=== PATIENT | female | born 1960 | race Two or more races ===

== ENCOUNTER 2022-03-08 12:10 | Emergency (ER) | payer OTHER ==
[~2022-03-08] VITALS: Ht 172.7 cm; Wt 95.3 kg
[~2022-03-08 12:10] MED LIST: SYNTHROID50 MCG
[2022-03-08] MEDS ORDERED: TOPROL XL200 MG PO (12:51)
[2022-03-08] MEDS ORDERED: LIPITOR20 MG PO (12:51)
[2022-03-08] MEDS ORDERED: SYNTHROID88 MCG PO (12:51)
[2022-03-08] MEDS ORDERED: GLUMETZA500 MG PO (12:51)
[2022-03-08] MEDS ORDERED: COZAAR50 MG PO (12:52)
== END 2022-03-08 14:59 | disposition home or self-care (01) ==
LOC: ER 12:10 → EMR PED 12:19 → ER 14:59
DX: M25.561 Pain in right knee (principal); E11.9 Type 2 diabetes mellitus without complications; Z79.84 Long term (current) use of oral hypoglycemic drugs; I10 Essential (primary) hypertension

== ENCOUNTER 2022-12-02 10:30 | Emergency (ER) | payer OTHER ==
[~2022-12-02] VITALS: Ht 172.7 cm; Wt 102.1 kg
[~2022-12-02 10:30] MED LIST changes: +COZAAR50 MG PO; +GLUMETZA500 MG PO; +LIPITOR20 MG PO; +SYNTHROID88 MCG PO; +TOPROL XL200 MG PO
[2022-12-02] MEDS ORDERED: IRBESARTAN-HCT1 EACH (10:56)
[2022-12-02] MEDS ORDERED: CRESTOR10 MG (10:56)
== END 2022-12-02 13:56 | disposition home or self-care (01) ==
LOC: ER 10:30
DX: S99.821A Other specified injuries of right foot, initial encounter (principal); W50.2XXA Accidental twist by another person, initial encounter; Y93.89 Activity, other specified; Y92.89 Other specified places as the place of occurrence of the external cause; Y99.8 Other external cause status; E03.8 Other specified hypothyroidism; E13.69 Other specified diabetes mellitus with other specified complication; I10 Essential (primary) hypertension

== ENCOUNTER 2023-05-08 11:21 | Emergency (ER) | payer OTHER ==
[~2023-05-08] VITALS: Ht 170.2 cm; Wt 98.0 kg
[~2023-05-08 11:21] MED LIST changes: +CRESTOR10 MG; +IRBESARTAN-HCT1 EACH
[2023-05-08 17:55] LABS: HEMATOCRIT 36.3 % (36.0-45.00); HEMOGLOBIN 12.1 g/dL (12.0-15.00); MEAN CELL VOLUME 90.6 fL (80.00-100.00); MEAN CORPUSCULAR HEMOGLOBIN 30.3 pg (27.00-32.0); MEAN CORPUSCULAR HGB CONC 33.4 g/dl (32.0-36.0); PLATELET COUNT 212 K/uL (150-450); RED CELL DISTRIBUTION WIDTH 13.1 % (11.5-14.5)
== END 2023-05-08 19:20 | disposition home or self-care (01) ==
LOC: ER 11:21
PROVIDERS: General Practice
DX: J10.1 Influenza due to other identified influenza virus with other respiratory manifestations (principal); R53.81 Other malaise; Z20.822 Contact with and (suspected) exposure to COVID-19

== ENCOUNTER → 2023-09-14 | Emergency (ER) | payer OTHER ==
[~2023-09-14] VITALS: Ht 172.7 cm; Wt 99.8 kg
[~2023-09-14] MED LIST changes: +DOLOGESIC-DF 51 EACH PO; +ONDANSETRON ODT8 MG PO; +PEPCID40 MG PO
[2023-09-14 13:38] LABS: HEMATOCRIT 39.6 % (36.0-45.00); HEMOGLOBIN 13.4 g/dL (12.0-15.00); MEAN CELL VOLUME 91.9 fL (80.00-100.00); MEAN CORPUSCULAR HGB CONC 33.8 g/dl (32.0-36.0); PLATELET COUNT 192 K/uL (150-450); RED BLOOD COUNT 4.31 M/uL (4.00-6.00); RED CELL DISTRIBUTION WIDTH 13.1 % (11.5-14.5)
[2023-09-14 14:34] LABS: INR 0.98; PARTIAL THROMBOPLASTIN TIME 22.5 SECONDS (22.0-34.0); PROTHROMBIN TIME 10.3 SECONDS (9.0-11.5)
[2023-09-14 14:50] LABS: CALCIUM 9.2 mg/dL (8.5-10.1); CREATININE SERUM 0.83 mg/dL (0.55-1.02); GFR 69.89; POTASSIUM 3.73 mEq/L (3.5-5.1)
== END | disposition home or self-care (01) ==
LOC: ER 12:29
PROVIDERS: Emergency Medicine
DX: R53.81 Other malaise (principal); I10 Essential (primary) hypertension; E03.8 Other specified hypothyroidism; E11.9 Type 2 diabetes mellitus without complications; Z79.84 Long term (current) use of oral hypoglycemic drugs

== ENCOUNTER 2023-09-17 03:11 | Emergency (ER) | payer OTHER ==
[~2023-09-17] VITALS: Ht 172.7 cm; Wt 99.8 kg
[~2023-09-17 03:11] MED LIST changes: -DOLOGESIC-DF 51 EACH PO; -ONDANSETRON ODT8 MG PO; -PEPCID40 MG PO
[2023-09-17] MEDS ORDERED: FAMOTIDINE/PF 20 MG/2 ML VIAL IV PUSH STA (04:01)
[2023-09-17] MEDS ORDERED: PROMETHAZINE HCL 50 MG/ML AMPUL IM STA (04:02)
[2023-09-17] MEDS ORDERED: KETOROLAC TROMETHAMINE 30 MG VIAL IV STA (04:02)
[2023-09-17] MEDS ORDERED: ORPHENADRINE CITRATE 30 MG/ML AMPUL IV STA (04:03)
[2023-09-17] MEDS ORDERED: 0.9 % SODIUM CHLORIDE 1,000 ML IV ONE (04:15)
[2023-09-17 04:50] LABS: HEMOGLOBIN 13.3 g/dL (12.0-15.00); MEAN CELL VOLUME 88.1 fL (80.00-100.00); MEAN CORPUSCULAR HEMOGLOBIN 30.8 pg (27.00-32.0); MEAN CORPUSCULAR HGB CONC 34.9 g/dl (32.0-36.0); PLATELET COUNT 150 K/uL (150-450); RED BLOOD COUNT 4.31 M/uL (4.00-6.00); RED CELL DISTRIBUTION WIDTH 12.8 % (11.5-14.5)
[2023-09-17 05:08] LABS: CALCIUM 8.7 mg/dL (8.5-10.1); CREATININE SERUM 0.62 mg/dL (0.55-1.02); GFR 97.86; POTASSIUM 4.29 mEq/L (3.5-5.1)
[2023-09-17 07:20] LABS: URINE APPEARANCE Clear; URINE BILIRRUBIN Negative (NEGATIVE); URINE BLOOD Negative; URINE COLOR Yellow; URINE GLUCOSE Negative (NEGATIVE); URINE LEUKOCYTE Moderate; URINE NITRATE Negative; URINE PROTEIN 30 (NEGATIVE)
[2023-09-17 07:23] LABS: URINE BACTERIA 1888.7 uL (0.0-1933); URINE EPITHELIAL CELLS 25.6 uL (0.0-38.8); URINE RBC 10.7 uL (0.0-20.8); URINE WBC 24.1 uL (0.0-23.2)
[2023-09-17] MEDS ORDERED: ONDANSETRON ODT8 MG PO (08:30)
[2023-09-17] MEDS ORDERED: DOLOGESIC-DF 51 EACH PO (08:30)
[2023-09-17] MEDS ORDERED: PEPCID40 MG PO (08:30)
== END 2023-09-17 08:41 ==
LOC: ER 03:11
PROVIDERS: General Practice
DX: J10.1 Influenza due to other identified influenza virus with other respiratory manifestations (principal); R11.2 Nausea with vomiting, unspecified; E11.9 Type 2 diabetes mellitus without complications; I10 Essential (primary) hypertension; E86.0 Dehydration; R19.7 Diarrhea, unspecified

== ENCOUNTER 2024-05-12 09:40 | Emergency (ER) | payer OTHER ==
[~2024-05-12] VITALS: Ht 172.7 cm; Wt 101.2 kg
[~2024-05-12 09:40] MED LIST changes: +DOLOGESIC-DF 51 EACH PO; +ONDANSETRON ODT8 MG PO; +PEPCID40 MG PO
[2024-05-12] MEDS ORDERED: KETOROLAC TROMETHAMINE 30 MG VIAL IM STA (11:19)
== END 2024-05-12 12:57 | disposition home or self-care (01) ==
LOC: ER 09:41
DX: R05.8 Other specified cough (principal); M54.9 Dorsalgia, unspecified; Z20.822 Contact with and (suspected) exposure to COVID-19

== ENCOUNTER 2025-02-09 09:00 | Inpatient (IN) | payer OTHER ==
[~2025-02-09] VITALS: Ht 243.8 cm; Wt 90.7 kg
[2025-02-09] MEDS ORDERED: NEURONTIN800 MG PO (11:24)
[2025-02-09] MEDS ORDERED: MOUNJARO7.5 MG/0.5 SQ (11:24)
[2025-02-09 13:00] LABS: COVID-19 AG NEGATIVE (NEGATIVE)
[2025-02-17] MEDS ORDERED: VANCOMYCIN HCL 1,000 MG VIAL ONE ×3 (06:47→15:22)
[2025-02-17] MEDS ORDERED: METHYLPREDNISOLONE SOD SUCC 125 MG VIAL ONE (06:47)
[2025-02-17] MEDS ORDERED: METHYLPREDNISOLONE ACETATE 80 MG/ML VIAL ONE (06:50)
[2025-02-17] MEDS ORDERED: CEFAZOLIN SODIUM 1,000 MG VIAL ONE ×2 (07:04→09:47)
[2025-02-17] MEDS ORDERED: MEDROLPACK PO (07:20)
[2025-02-17] MEDS ORDERED: PERCOCET 5-3251 EACH PO (07:20)
[2025-02-17] MEDS ORDERED: ZOFRAN8 MG PO (07:21)
[2025-02-17] MEDS ORDERED: COLACE100 MG PO (07:21)
[2025-02-17] MEDS ORDERED: AMOX-CLAV 875-1 EACH PO (07:21)
[2025-02-17] MEDS ORDERED: GABAPENTIN100 M2 PO (07:21)
[2025-02-17] MEDS ORDERED: NEURONTIN800 MG PO (07:22)
[2025-02-17] MEDS ORDERED: ENALAPRILAT DIHYDRATE 1.25 MG/ML VIAL IV PRN (07:45)
[2025-02-17] MEDS ORDERED: PROMETHAZINE HCL 50 MG/ML AMPUL IM PRN (07:45)
[2025-02-17] MEDS ORDERED: 0.9 % SODIUM CHLORIDE 1,000 ML IV SCH (07:45)
[2025-02-17] MEDS ORDERED: CEFAZOLIN SODIUM 1,000 MG in 0.9 % SODIUM CHLORIDE 50 ML IV SCH (09:00)
[2025-02-17] MEDS ORDERED: MORPHINE SULFATE 4 MG/ML CARTRIDGE IV SCH (09:00)
[2025-02-17] MEDS ORDERED: DOCUSATE SODIUM 100MG CAP PO SCH (09:00)
[2025-02-17] MEDS ORDERED: TAMSULOSIN HCL 0.4 MG CAP PO SCH (09:00)
[2025-02-17] MEDS ORDERED: METHYLPREDNISOLONE SOD SUCC 125 MG VIAL IV SCH (09:00)
[2025-02-17] MEDS ORDERED: VANCOMYCIN HCL 1,000 MG VIAL IV SCH (09:00)
[2025-02-17] MEDS ORDERED: METHYLPREDNISOLONE SOD SUCC 125 MG VIAL IV ONE (09:15)
[2025-02-17] MEDS ORDERED: MORPHINE SULFATE 4 MG/ML VIAL IV ONE ×2 (10:10→10:40)
[2025-02-17 13:36] VITALS: BP 116/65; O2SAT 95
[2025-02-17 17:31] VITALS: BP 145/69; O2SAT 97
[2025-02-17] MEDS ORDERED: ACETAMINOPHEN 500 MG GEL..CAP PO SCH (20:00)
[2025-02-17] MEDS ORDERED: GABAPENTIN 800 MG TABLET PO SCH (21:00)
[2025-02-18] VITALS (8 sets, daily range): BP systolic 96–124; BP diastolic 62–76; O2SAT 91–98
[2025-02-18] MEDS ORDERED: SODIUM CHLORIDE 0.45 % 1,000 ML IV SCH
[2025-02-18] MEDS ORDERED: LEVOTHYROXINE SODIUM 88 MCG TABLET PO SCH (06:00)
[2025-02-18] MEDS ORDERED: VANCOMYCIN HCL 1,000 MG VIAL ONE (06:00)
[2025-02-18] MEDS ORDERED: OxyCODONE HCL 5 MG TABLET (ROXICODONE) PO SCH (06:01)
[2025-02-18 07:51] LABS: BASO % 0.1 % (0.1-1.2); EOS # 0.00 (0.04-0.54); EOS % 0.0 % (0.7-7.0); LYMPH # 0.52 (1.18-3.74); LYMPH % 4.0 % (19.3-53.1); MEAN PLATELET VOLUME 11.90 fl (9.4-12.4); MONO # 0.38 (0.24-0.82); MONO % 2.9 % (4.7-12.5); NEUT # 11.97 (1.56-6.13); NEUT % 92.5 % (34.0-71.1); RED CELL DISTRIBUTION WIDTH 13.5 % (11.6-14.4)
[2025-02-18 08:28] LABS: BUN CREA RATIO 20.0 (7.0-25.0); CREATININE SERUM 0.59 mg/dL (0.55-1.02); GFR 103.28; GLUCOSE FASTING 139.0 mg/dL (65-100); OSMOLALITY SERUM 289.0 MOSM/KG (275-295)
[2025-02-18] MEDS ORDERED: METOPROLOL SUCCINATE 100 MG TAB.SR.24H PO SCH (09:00)
[2025-02-18] MEDS ORDERED: MetFORMIN HCL 500 MG TABLET PO SCH (09:00)
[2025-02-18] MEDS ORDERED: ROSUVASTATIN CALCIUM 10 MG TABLET PO SCH (09:00)
[2025-02-18] MEDS ORDERED: IRBESARTAN 300 MG TABLET PO SCH (09:00)
[2025-02-19 00:03] VITALS: O2SAT 90
[2025-02-19 01:24] VITALS: BP 109/67; O2SAT 98
[2025-02-19 05:14] VITALS: O2SAT 90
[2025-02-19 10:00] VITALS: O2SAT 89
== END 2025-02-19 12:48 | disposition home or self-care (01) | DRG 428 ==
LOC: O/R 02-17 05:34 → SURH 02-17 07:00
PROVIDERS: ADMIT Orthopaedic Surgery Orthopaedic Surgery of the Spine; ATTEND Orthopaedic Surgery Orthopaedic Surgery of the Spine
PROC: XRGC0R7 Fusion of 2 or more Lumbar Vertebral Joints using Custom-Made Anatomically Designed Interbody Fusion Device, Open Approach, New Technology Group 7 (ICD-10-PCS; 2025-02-17)
PROC: 0ST20ZZ Resection of Lumbar Vertebral Disc, Open Approach (ICD-10-PCS; 2025-02-17)
PROC: 07DR0ZZ Extraction of Iliac Bone Marrow, Open Approach (ICD-10-PCS; 2025-02-17)
PROC: 4A1104G Monitoring of Peripheral Nervous Electrical Activity, Intraoperative, Open Approach (ICD-10-PCS; 2025-02-17)
PROC: 0SG1071 Fusion of 2 or more Lumbar Vertebral Joints with Autologous Tissue Substitute, Posterior Approach, Posterior Column, Open Approach (ICD-10-PCS; principal; 2025-02-17 07:00)
PROC: 4A12X4Z Monitoring of Cardiac Electrical Activity, External Approach (ICD-10-PCS; 2025-02-18)
DX: M43.16 Spondylolisthesis, lumbar region (principal); M48.062 Spinal stenosis, lumbar region with neurogenic claudication; I10 Essential (primary) hypertension

== ENCOUNTER 2025-06-11 15:23 | Outpatient (CLI) | payer OTHER ==
[~2025-06-11 15:23] MED LIST changes: +AMOX-CLAV 875-1 EACH PO; +COLACE100 MG PO; +GABAPENTIN100 M2 PO; +MEDROLPACK PO; +MOUNJARO7.5 MG/0.5 SQ; +NEURONTIN800 MG PO; +PERCOCET 5-3251 EACH PO; +ZOFRAN8 MG PO
== END 2025-06-11 15:27 | disposition home or self-care (01) ==
LOC: SONOGRAMA 15:23
PROVIDERS: ATTEND Pathology Anatomic Pathology & Clinical Pathology
DX: D34 Benign neoplasm of thyroid gland (principal); E07.89 Other specified disorders of thyroid; E04.2 Nontoxic multinodular goiter